=== PATIENT | female | born 1965 | race Caucasian/White ===

== ENCOUNTER → 2016-08-29 | Day surgery (SDC) | payer SELFPAY ==
[~2016-08-29] VITALS: Ht 170.2 cm; Wt 57.2 kg
[~2016-08-29] MED LIST: PLAQUENIL200 M1 PO
--- NOTE | 2016-09-02 12:38 | Operative Report ---
Operative/Inv Procedure Report Surgery Date: 08/29/16 Name of Procedure: Bilateral revision breast augmentation Pre-Operative Diagnosis: Cosmetic breast deformity Post-Operative Diagnosis: same Estimated Blood Loss: scant (mminimal) Surgeon/Associate Store Director: SHAUNA FOLEY MD Anesthesia: laryngeal mask airway Monitors: None IV Fluids: 800 cc Implants: Bilateral breast implant Urine Output: Normal Drains: None Specimens: None Microbiology: None Tourniquet: Not applicable Complications: None Condition: Stable Operative Indication: Cosmetic deformity of the breast bilateral Operative/Procedure Note Note: Patient presents with breast asymmetry after cosmetic breast augmentation in the past performed by another physician. She requests revision. She does not know the name of the implants that she has in place at the present time, but they are saline filled. Markings are made in the holding area for location of the old scars to be used for access for today's procedure as well as the expected elevation of the left inframammary crease. 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 Arms were wrapped on arm boards at 90 the body. OpSite dressings placed over nipple areola complexes bilaterally Old scar on the left breast was incised to allow dissection down to the implant which was removed and found to be a smooth walled saline implant without visible markings. This was deflated on the back table and found to obtain approximately 230 cc. Right side implant was removed in a similar manner and found to be the same. Inferior lateral capsulectomy was then performed on the left side and edges sutured to elevate the inferior and lateral inframammary crease with interrupted and running 2-0 Polysorb catching the chest wall. Natrelle sizer 240 cc was then chosen and inserted into both pockets after examining the pockets and finding no abnormalities. Left side was filled to 300 cc, right side to 320 cc with air to compensate for inherent difference in breast sizes. Patient was inspected in the sitting and supine position. Minor capsulotomy performed on the right side lateral aspect Sizers were then removed and the cavity sequentially irrigated with the triple antibiotic solution made with 1 g of Ancef, 50,000 units of bacitracin and 80 mg of gentamicin per 500 cc of saline to clear. Gloves were then changed before insertion of each implant, each implant soaked in the same antibiotic solution and inserted, left side implant Natrelle SRF-[id number] sn [id number]. Right side implant Natrelle [id number]-[id number], sn [id number]. Patient checked in the sitting and supine position for symmetry. Closure of each side and performed with inverted 3-0 Polysorb placed sequentially and then tied followed by inverted 4-0 Polysorb and subcuticular 5- 0 Polysorb and Steri-Strips. A small dressing placed, patient removed from anesthesia and sent to recovery room in stable condition. No complications. Sponge and needle count correct
== END ==
LOC: STS 02:20
DX: Z41.1 Encounter for cosmetic surgery (principal); N65.0 Deformity of reconstructed breast; M06.9 Rheumatoid arthritis, unspecified; E07.9 Disorder of thyroid, unspecified
CPT/HCPCS: J0131; J0690; J1580; J2250